=== PATIENT | female | born 1965 | race Caucasian/White ===

== ENCOUNTER 2017-12-28 20:02 | Inpatient (IN) ==
[2017-12-28] MEDS ORDERED: Sod Chloride 0.9% Inj 1,000 ML IV.SIG ONE (20:09)
[2017-12-28] MEDS ORDERED: Sod Chloride 0.9% Inj 1,000 ML IV.CONT SCH (20:15)
[2017-12-28 20:27] LABS: Baso # (Auto) 0.1 th/mm3 (0.0-0.2); Baso % (Auto) 0.9 % (0.0-2.0); Eos # (Auto) 0.2 th/mm3 (0.0-0.4); Eos % (Auto) 2.8 % (0.0-4.0); Hematocrit 46.1 % (35.0-46.0); Hemoglobin 15.8 gm/dL (11.6-15.3); Lymph % (Auto) 46.3 % (9.0-44.0); Mean Corpuscular HGB Conc 34.3 % (32.0-36.0); Mean Corpuscular Hemoglobin 33.4 pg (27.0-34.0); Mean Corpuscular Volume 97.5 fL (80.0-100.0); Mean Platelet Volume 7.9 fL (7.0-11.0); Mono # (Auto) 0.6 th/mm3 (0.0-0.9); Mono % (Auto) 9.7 % (0.0-8.0); Neut # (Auto) 2.6 th/mm3 (1.8-7.7); Neut % (Auto) 40.3 % (16.0-70.0); Platelet Count 221 th/mm3 (150-450); Red Blood Count 4.72 mil/mm3 (4.00-5.30); Red Cell Distribution Width 13.2 % (11.6-17.2); White Blood Count 6.5 th/mm3 (4.0-11.0)
--- NOTE | 2017-12-28 20:33 | CT ---
EXAM DATE: 12/28/2017 8:31 PM EDT AGE/SEX: 52 years / Female INDICATIONS: Slurred speech and left facial droop. CLINICAL DATA: This is the patient's initial encounter. Patient reports that signs and symptoms have been present for 1 day and indicates a pain score of 0/10. MEDICAL/SURGICAL HISTORY: Diabetes. Hypertension. Seizures None. RADIATION DOSE: 36.12 CTDI (mGy) [place] [facility] [place]. . TECHNIQUE: CT of the head without contrast. Using automated exposure control and adjustment of the mA and/or kV according to patient size, radiation dose was kept as low as reasonably achievable to ob tain optimal diagnostic quality images. DICOM format image data is available electronically for revi ew and comparison. FINDINGS: Cerebrum: The ventricles are normal for age. No evidence of midline shift, mass lesion, hemorrhage or acute infarction. No extraaxial fluid collections are seen. Posterior Fossa: The cerebellum and brainstem are intact. The 4th ventricle is midline. The cerebe llopontine angle is unremarkable. Extracranial: The visualized portion of the orbits is intact. Skull: The calvaria is intact. No evidence of skull fracture. CONCLUSION: 1. No acute intracranial abnormalities. . Electronically signed by: Cornel Florez MD 12/28/2017 8:32 PM EDT
--- NOTE | 2017-12-28 20:39 | ED ---
HPI General Chief Complaint: Neuro Symptoms/Deficit Stated Complaint: Neuro Time Seen by Provider: 12/28/17 20:13 Source: patient Mode of arrival: ambulatory Limitations: no limitations History of Present Illness HPI Narrative: Patient is a 52-year-old female presenting to the emergency department for evaluation of neurological deficits. Patient states she woke up this morning and had weakness to her right face, right arm, right leg. She reports feeling confused and has had trouble speaking. Patient was brought into emergency department by a friend. Onset of symptoms was over 10 hours prior to arrival to the emergency department. Patient reports a history of type 2 diabetes, she is currently taking a friend's metformin. She also reports a history of seizure disorder as well as alcoholism. Patient has not had any routine primary care in over 2 years. She denies any illicit drug use. Onset (ago): hour(s) (>8) Location: speech, left face, left arm and left leg History of same: No Severity: moderate Quality: weak Relieving factors: none Exacerbating factors: none Context: other (unknown onset, pt woke up with deficits this morning.) On Anticoagulants: No Associated symptoms: confusion and nausea/vomiting Treatments Prior to Arrival: none Related Data Allergies Allergy/AdvReac Type Severity Reaction Status Date / Time Sulfa (Sulfonamide Allergy Severe Anaphylaxis Verified 12/28/17 20:08 Antibiotics) sulfates Allergy Unknown Anaphylaxis Uncoded 12/28/17 20:08 Review of Systems Except as stated in HPI: all other systems reviewed are negative Neurologic Reports abnormal speech, Reports confusion, Reports focal weakness, Reports sensory deficit and Reports weakness PMFSH Medical History Medical History Alcoholism (Chronic) Diabetes (Chronic) Hypertension (Chronic) Seizures (Chronic) Social History Social History Substance History: No History of Abuse Second Hand Smoke Exposure: No Smoking Status: Never smoker How Often Do You Have a Drink Containing Alcohol: 4 or more times a week Recent Travel in [facility] within the Last 8 Weeks: No Recent Out of Country Travel within the Last 8 Weeks: No Immunization History Tetanus Immunization: >5 Years Hx Influenza Vaccine This Season: No Exam Narrative Exam Narrative: GENERAL: Well developed, well nourished, alert female. In no acute distress. SKIN: Focused skin assessment warm/dry. HEAD: Atraumatic. Normocephalic. EYES: Pupils equal and round. No scleral icterus. No injection or drainage. ENT: No nasal bleeding or discharge. Mucous membranes pink and moist. NECK: Trachea midline. No JVD. CARDIOVASCULAR: Regular rate and rhythm. No murmur appreciated. RESPIRATORY: No accessory muscle use. Clear to auscultation. Breath sounds equal bilaterally. GASTROINTESTINAL: Abdomen soft, non-tender, nondistended. Hepatic and splenic margins not palpable. MUSCULOSKELETAL: No obvious deformities. No clubbing. No cyanosis. No edema. PSYCHIATRIC: Appropriate mood and affect; insight and judgment normal. Neuro General: alert, awake and oriented x3 Cranial Nerves: PERRL Speech: abnormal speech Motor: strength not 5/5 throughout, movement abnormality noted, pronator drift and strength abnormal (left sided weakness, 0/5 in left hand, 2/5 in left foot) Coordination: acisuh-iv-[id number] test abnormal and rubr-rg-[id number] test normal Pupils: Normal pupillary reactivity/response: bilateral Course Initial Documented Vital Signs Temperature 98 F 12/28/17 20:05 Pulse Rate 97 H 12/28/17 20:05 Respiratory Rate 20 12/28/17 20:05 Blood Pressure 195/94 H 12/28/17 20:05 Pulse Oximetry 95 12/28/17 20:05 Last Documented Vital Signs Temperature 98 F 12/28/17 20:05 Pulse Rate 98 H 12/28/17 22:17 Respiratory Rate 18 12/28/17 22:17 Blood Pressure 144/92 H 12/28/17 22:17 Pulse Oximetry 97 12/28/17 22:17 Medical Decision Making [facility] Narrative Medical decision making narrative: Patient is a 52-year-old female presenting for evaluation of left-sided weakness that was present when she woke up this morning. Patient presented with significant focal deficits on the left side. Patient is placed on traffic monitor specialist, continuous pulse oximetry, IV access is established. Discussed with Dr. English, neurologist. She was informed, a consult was placed and no new orders were given. CT scan the brain shows no acute abnormalities. Blood alcohol level is 169, labs are reviewed with glucose 359, 10 units of subcutaneous insulin ordered 1 dose. Chest x-ray shows no acute disease. Patient will be admitted to [facility], discussed with Dr. Ms. all accepted admission. Patient and her friend were advised on clinical findings and plan of care. Patient is agreeable. Differential Diagnosis Differential Diagnosis: CVA versus TIA versus Marcos's palsy versus metabolic abnormality versus Seizure versus other Lab Data Lab results reviewed: Yes I reviewed the patient's lab results. Result diagrams: 12/28/17 20:12 12/28/17 20:12 Lab Results 12/28/17 12/28/17 12/28/17 Range/Units 20:12 20:12 20:12 WBC 6.5 (4.0-11.0) th/mm3 RBC 4.72 (4.00-5.30) mil/mm3 Hgb 15.8 H (11.6-15.3) gm/dL Hct 46.1 H (35.0-46.0) % MCV 97.5 (80.0-100.0) fL MCH 33.4 (27.0-34.0) pg MCHC 34.3 (32.0-36.0) % RDW 13.2 (11.6-17.2) % Plt Count 221 (150-450) th/mm3 MPV 7.9 (7.0-11.0) fL Neut % (Auto) 40.3 (16.0-70.0) % Lymph % (Auto) 46.3 H (9.0-44.0) % Perkins % (Auto) 9.7 H (0.0-8.0) % Eos % (Auto) 2.8 (0.0-4.0) % Baso % (Auto) 0.9 (0.0-2.0) % Neut # (Auto) 2.6 (1.8-7.7) th/mm3 Lymph # (Auto) 3.0 (1.0-4.8) th/mm3 Perkins # (Auto) 0.6 (0.0-0.9) th/mm3 Eos # (Auto) 0.2 (0.0-0.4) th/mm3 Baso # (Auto) 0.1 (0.0-0.2) th/mm3 WBC Differential . Differential Comment Auto diff final PT 10.7 (9.8-11.6) sec INR 1.1 Ratio APTT 27.5 (24.3-30.1) sec Sodium 134 L (136-145) meq/L Potassium 3.9 (3.5-5.1) meq/L Chloride 97 L (98-107) meq/L Carbon Dioxide 25.2 (21.0-32.0) meq/L Anion Gap 12 (5-15) meq/L BUN 8 (7-18) mg/dL Creatinine 0.89 (0.50-1.00) mg/dL Estimated GFR 66 L (>89) mL/min POC Glucose (68-110) mg/dl Random Glucose 359 H (74-106) mg/dL Calcium 9.3 (8.5-10.1) mg/dL Total Bilirubin 0.2 (0.2-1.0) mg/dL AST 62 H (15-37) U/L ALT 71 H (10-53) U/L Alkaline Phosphatase 150 H (45-117) U/L Total Creatine Kinase 231 H (26-192) U/L CK-MB (CK-2) 8.0 H (0.5-3.6) ng/mL CK-MB (CK-2) % 3.5 (0.0-4.0) % Troponin I Less than 0.02 L (0.02-0.05) ng/mL Total Protein 8.2 (6.4-8.2) g/dL Albumin 3.8 (3.4-5.0) g/dL Urine Color (Yellw/Straw) Urine Clarity (Clear) Urine pH (5.0-8.5) Ur Specific [place] (1.002-1.035) Urine Protein (Neg-Trace) mg/dL Urine Glucose (UA) (Negative) mg/dL Urine Ketones (Negative) mg/dL Urine Occult Blood (Negative) Urine Nitrate (Negative) Urine Bilirubin (Negative) Urine Urobilinogen (Less than 2) mg/dL Ur Leukocyte Esterase (Negative) Urine WBC (0-5) /hpf Ur Squamous Epith Cells (0-5) /hpf Urine Bacteria (None) /hpf Micro UA Comment Urine Culture Comments Serum Alcohol 169 H (0-5) mg/dL Blood Type Antibody Screen 12/28/17 12/28/17 12/28/17 Range/Units 20:12 20:45 23:37 WBC (4.0-11.0) th/mm3 RBC (4.00-5.30) mil/mm3 Hgb (11.6-15.3) gm/dL Hct (35.0-46.0) % MCV (80.0-100.0) fL MCH (27.0-34.0) pg MCHC (32.0-36.0) % RDW (11.6-17.2) % Plt Count (150-450) th/mm3 MPV (7.0-11.0) fL Neut % (Auto) (16.0-70.0) % Lymph % (Auto) (9.0-44.0) % Perkins % (Auto) (0.0-8.0) % Eos % (Auto) (0.0-4.0) % Baso % (Auto) (0.0-2.0) % Neut # (Auto) (1.8-7.7) th/mm3 Lymph # (Auto) (1.0-4.8) th/mm3 Perkins # (Auto) (0.0-0.9) th/mm3 Eos # (Auto) (0.0-0.4) th/mm3 Baso # (Auto) (0.0-0.2) th/mm3 WBC Differential Differential Comment PT (9.8-11.6) sec INR Ratio APTT (24.3-30.1) sec Sodium (136-145) meq/L Potassium (3.5-5.1) meq/L Chloride (98-107) meq/L Carbon Dioxide (21.0-32.0) meq/L Anion Gap (5-15) meq/L BUN (7-18) mg/dL Creatinine (0.50-1.00) mg/dL Estimated GFR (>89) mL/min POC Glucose 205 H (68-110) mg/dl Random Glucose (74-106) mg/dL Calcium (8.5-10.1) mg/dL Total Bilirubin (0.2-1.0) mg/dL AST (15-37) U/L ALT (10-53) U/L Alkaline Phosphatase (45-117) U/L Total Creatine Kinase (26-192) U/L CK-MB (CK-2) (0.5-3.6) ng/mL CK-MB (CK-2) % (0.0-4.0) % Troponin I (0.02-0.05) ng/mL Total Protein (6.4-8.2) g/dL Albumin (3.4-5.0) g/dL Urine Color Straw (Yellw/Straw) Urine Clarity Clear (Clear) Urine pH 5.0 (5.0-8.5) Ur Specific [place] 1.003 (1.002-1.035) Urine Protein Negative (Neg-Trace) mg/dL Urine Glucose (UA) 500 or greater (Negative) mg/dL Urine Ketones Negative (Negative) mg/dL Urine Occult Blood Negative (Negative) Urine Nitrate Negative (Negative) Urine Bilirubin Negative (Negative) Urine Urobilinogen Less than 2 (Less than 2) mg/dL Ur Leukocyte Esterase Negative (Negative) Urine WBC 1 (0-5) /hpf Ur Squamous Epith Cells 1 (0-5) /hpf Urine Bacteria Occasional H (None) /hpf Micro UA Comment Culture not ind Urine Culture Comments Culture not ind Serum Alcohol (0-5) mg/dL Blood Type B Positive Antibody Screen Negative Imaging Data Radiologist's impression: Head CT 12/28/17 20:06 CONCLUSION: 1. No acute intracranial abnormalities. . Chest X-Ray 12/28/17 20:07 CONCLUSION: No acute findings. Head MRI 12/28/17 22:03 CONCLUSION: 1. 11 mm small infarcts in the deep white matter of the posterior right frontal lobe. No mass effect or shift. No other infarcts identified. Head MRA 12/28/17 22:03 CONCLUSION: 1. Examination within normal limits for age. origin right posterior cerebral artery. Discharge Plan Discharge Disposition Patient Disposition: 30 Still Patient Discharge Condition Condition: Stable Discharge Details Diagnosis: CVA (cerebral vascular accident), HTN (hypertension), DM (diabetes mellitus), Alcohol abuse, Seizure disorder Physicians Team ED Provider: Stas Rose ED Midlevel Provider: Madison Hull Primary Care Provider: Primary Care Alexandra Dominguez Attending Provider: Lara Jimenez Status ED Status: Left Department Discharge Information Discharge Date/Time: 12/28/17 23:57
[2017-12-28 20:40] LABS: Activated Partial Thrombo Time 27.5 sec (24.3-30.1); INR 1.1 Ratio; Prothrombin Time 10.7 sec (9.8-11.6)
[2017-12-28 20:45] LABS: Alanine Aminotransferase 71 U/L (10-53); Albumin 3.8 g/dL (3.4-5.0); Anion Gap 12 meq/L (5-15); Aspartate Aminotransferase 62 U/L (15-37); Blood Urea Nitrogen 8 mg/dL (7-18); Calcium 9.3 mg/dL (8.5-10.1); Carbon Dioxide 25.2 meq/L (21.0-32.0); Chloride 97 meq/L (98-107); Glomerular Filtration Rate 66 mL/min (>89); Glucose,Random 359 mg/dL (74-106); Potassium 3.9 meq/L (3.5-5.1); Sodium 134 meq/L (136-145)
[2017-12-28 20:49] LABS: Alkaline Phosphatase 150 U/L (45-117); Creatine Kinase 231 U/L (26-192); Total Protein 8.2 g/dL (6.4-8.2)
[2017-12-28 20:53] LABS: Alcohol 169 mg/dL (0-5)
[2017-12-28] MEDS ORDERED: Thiamine Inj 100 MG in Sodium Chlor 0.9% Inj 100 ML IV.SIG ONE (20:58)
[2017-12-28 21:05] LABS: Bacteria,Urine Occasional /hpf; Bilirubin,Urine Negative (Negative); Clarity,Urine Clear (Clear); Color,Urine Straw (Yellw/Straw); Glucose,Urine (UA) 500 or Greater mg/dL (Negative); Leukocyte Esterase,Urine Negative (Negative); Nitrite,Urine Negative (Negative); Specific Gravity,Urine 1.003 (1.002-1.035); Squamous Epithelial Cell,Urine 1 /hpf (0-5)
[2017-12-28 21:06] LABS: CKMB Percent 3.5 % (0.0-4.0)
--- NOTE | 2017-12-28 21:08 | XR ---
EXAM DATE: 12/28/2017 9:01 PM EDT AGE/SEX: 52 years / Female INDICATIONS: Shortness of breath. CLINICAL DATA: This is the patient's initial encounter. Patient reports that signs and symptoms have been present for 1 day and indicates a pain score of 0/10. MEDICAL/SURGICAL HISTORY: None. None. [place] [facility] [place]. . FINDINGS: A single AP view of the chest demonstrates the lungs to be symmetrically aerated without evidence of mass, infiltrate or effusion. The cardiomediastinal contours are unremarkable. Osseous structures a re intact. CONCLUSION: No acute findings. Electronically signed by: Cornel Florez MD 12/28/2017 9:07 PM EDT
[2017-12-28] MEDS ORDERED: Dextrose 50% in Water 50 ML Vial IV.PUSH PRN (21:59)
[2017-12-28] MEDS ORDERED: Haloperidol Inj 5 MG/ML Ampul IV.PUSH PRN (22:00)
[2017-12-28] MEDS ORDERED: LORazepam 1 MG Tablet PO PRN (22:00)
--- NOTE | 2017-12-28 22:05 | P.HPIM ---
History of Present Illness Primary Care Physician: No Primary Care Physician History of Present Illness: This is a 52-year-old female with a PMH of HTN, DM, Peripheral Neuropathy, Seizure Disorder and Alcohol Abuse who presented to the ER with complaints of left hand weakness, facial droop and slurred speech. States she's been having intermittent headache, confusion and lethargy for the last few days. Woke up this morning w/ difficulty speaking and states she went to feed her cats and couldn't hold anything in her left hand. Unclear if she has lower extremity weakness, states she has "neuropathy" so it's difficult for her to tell. Reports h/o Seizure Disorder, off meds for several years, notes almost nightly seizure activity with "small seizures, not the big ones". No seizure today. Slurred speech and facial droop improved, however left hand weakness persists. +alcohol today. On arrival, BP 195/94, HR 97, O2 sat 95% on RA, Afebrile. CBC unremarkable. INR 1.1. Chemistry essentially unremarkable except for BS 359. LFTs elevated, no previous labs for comparison. Troponin negative. UA negative. Alcohol 169. CXR with no acute findings. CT Head negative. - Diagnosis (1) CVA (cerebral vascular accident) (2) HTN (hypertension) (3) Seizure disorder (4) Alcohol abuse (5) DM (diabetes mellitus) Review of Systems PAST FAMILY HISTORY: Reviewed. No h/o DM or CAD All other systems reviewed negative except as stated in HPI PMFSH - History History Provided By: Patient - Medical History Medical History: Medical History (Last Reviewed 12/28/17 @ 20:33 by ALAN Cole) Diabetes Hypertension Seizures Alcoholism - Tobacco History Second Hand Smoke Exposure: No Smoking Status: Never smoker - Alcohol History How Often Do You Have a Drink Containing Alcohol: 4 or more times a week - Substance Use History Substance History: No History of Abuse - Travel History Recent Travel in the [place] Within the Last 8 Weeks: No Recent Travel Out of the Country Within the Last 8 Weeks: No - Immunization History Tetanus Immunization: >5 Years Hx Influenza Vaccine This Season: No Medications and Allergies Active Medications: Active Medications Sodium Chloride (Ns Inj) 1,000 mls @ 70 mls/hr IV.CONT .[id number] ARGELIA Stop: 12/29/17 10:32 Sodium Chloride (Ns Flush) 2 ml IV.FLUSH PRN PRN PRN Reason: FLUSH AFTER USING IV ACCESS Allergies Allergy/AdvReac Type Severity Reaction Status Date / Time Sulfa (Sulfonamide Allergy Severe Anaphylaxis Verified 12/28/17 20:08 Antibiotics) sulfates Allergy Unknown Anaphylaxis Uncoded 12/28/17 20:08 Exam Vital signs: Vital Signs 12/28/17 20:05 12/28/17 20:30 Temperature 98 F Pulse Rate 97 H 100 H Respiratory Rate 20 Blood Pressure 195/94 H Pulse Oximetry 95 99 Intake & Output 12/28/17 12/28/17 12/29/17 06:59 18:59 06:59 Weight 72.575 kg Narrative: PE: GENERAL: Pleasant middle aged white female in no acute distress. HEENT: PERRLA, EOMI. No scleral icterus or conjunctival pallor. No lid lag or facial droop. Intermittent slurring, improved since arrival per pt. CARDIOVASCULAR: Regular rate and rhythm. No obvious murmurs to auscultation. No chest tenderness to palpation. RESPIRATORY: No obvious rhonchi or wheezing. Clear to auscultation. Breath sounds equal bilaterally. GASTROINTESTINAL: Abdomen soft, non-tender, nondistended. BS normal. MUSCULOSKELETAL: Extremities without clubbing, cyanosis, or edema. No obvious deformities. NEUROLOGICAL: Awake, alert and oriented x4. Strength 1/5 left hand, 2-3/5 left foot, normal strength RUE/RLE. Moving both upper and lower extremities spontaneously. Results - Labs CBC & Chem 7: 12/28/17 20:12 12/28/17 20:12 Labs: Short CBC 12/28/17 Range/Units 20:12 WBC 6.5 (4.0-11.0) th/mm3 Hgb 15.8 H (11.6-15.3) gm/dL Hct 46.1 H (35.0-46.0) % Plt Count 221 (150-450) th/mm3 BMP 12/28/17 20:12 Sodium 134 L Potassium 3.9 Chloride 97 L Carbon Dioxide 25.2 BUN 8 Creatinine 0.89 Calcium 9.3 Cardiac Enzymes 12/28/17 Range/Units 20:12 Total Creatine Kinase 231 H (26-192) U/L CK-MB (CK-2) 8.0 H (0.5-3.6) ng/mL Troponin I Less than 0.02 L (0.02-0.05) ng/mL Liver Function 12/28/17 Range/Units 20:12 Total Bilirubin 0.2 (0.2-1.0) mg/dL AST 62 H (15-37) U/L ALT 71 H (10-53) U/L Alkaline Phosphatase 150 H (45-117) U/L Albumin 3.8 (3.4-5.0) g/dL Urine 12/28/17 Range/Units 20:45 Urine Color Straw (Yellw/Straw) Urine Clarity Clear (Clear) Urine pH 5.0 (5.0-8.5) Ur Specific [place] 1.003 (1.002-1.035) Urine Protein Negative (Neg-Trace) mg/dL Urine Glucose (UA) 500 or greater (Negative) mg/dL - Imaging Impressions Head CT 12/28/17 20:06 CONCLUSION: 1. No acute intracranial abnormalities. . Chest X-Ray 12/28/17 20:07 CONCLUSION: No acute findings. Caprini VTE Risk Assessment Caprini VTE Risk Assessment: Moderate/High Risk (score >= 2) Caprini Risk Assessment Model: Point Value = 1 Point Value = 2 Point Value = 3 Point Value = 5 Age 41-60 Minor surgery BMI > 25 kg/m2 Swollen legs Varicose veins or History of unexplained or recurrent spontaneous Oral contraceptives or hormone replacement Sepsis (< 1 month) Serious lung disease, including pneumonia (< 1 month) Abnormal pulmonary function Acute myocardial infarction Congestive heart failure (< 1 month) History of inflammatory bowel disease Medical patient at bed rest Age 61-74 Arthroscopic surgery Major open surgery (> 45 min) Laparoscopic surgery (> 45 min) Malignancy Confined to bed (> 72 hours) Immobilizing plaster cast Central venous access Age >= 75 History of VTE Family history of VTE Factor V Leiden Prothrombin [id number] Lupus anticoagulant Anticardiolipin antibodies Elevated serum homocysteine Heparin-induced thrombocytopenia Other congenital or acquired thrombophilia Stroke (< 1 month) Elective arthroplasty Hip, pelvis, or leg fracture Acute spinal cord injury (< 1 month) Prophylaxis Regimen: Total Risk Factor Score Risk Level Prophylaxis Regimen 0-1 Low Early ambulation 2 Moderate Order ONE of the following: *Sequential Compression Device (SCD) *Heparin 5000 units SQ BID 3-4 Higher Order ONE of the following medications: *Heparin 5000 units SQ TID *Enoxaparin/Lovenox 40 mg SQ daily (WT < 150 kg, CrCl > 30 mL/min) *Enoxaparin/Lovenox 30 mg SQ daily (WT < 150 kg, CrCl > 10-29 mL/min) *Enoxaparin/Lovenox 30 mg SQ BID (WT < 150 kg, CrCl > 30 mL/min) AND/OR *Sequential Compression Device (SCD) 5 or more Highest Order ONE of the following medications: *Heparin 5000 units SQ TID (Preferred with Epidurals) *Enoxaparin/Lovenox 40 mg SQ daily (WT < 150 kg, CrCl > 30 mL/min) *Enoxaparin/Lovenox 30 mg SQ daily (WT < 150 kg, CrCl > 10-29 mL/min) *Enoxaparin/Lovenox 30 mg SQ BID (WT < 150 kg, CrCl > 30 mL/min) AND *Sequential Compression Device (SCD) Assessment and Plan - Assessment (1) CVA (cerebral vascular accident) Code(s): I63.9 - Cerebral infarction, unspecified Status: Acute (2) HTN (hypertension) Code(s): I10 - Essential (primary) hypertension Status: Acute (3) Seizure disorder Code(s): G40.909 - Epilepsy, unspecified, not intractable, without status epilepticus Status: Acute (4) Alcohol abuse Code(s): F10.10 - Alcohol abuse, uncomplicated Status: Acute (5) DM (diabetes mellitus) Code(s): E11.9 - Type 2 diabetes mellitus without complications Status: Acute - Plan A/P: 1. CVA: Acute onset facial droop, slurred speech and left-sided weakness, improved but persistent left hand weakness and mild slurred speech. Onset this morning, not TPA candidate. CT Head w/ no acute findings, images reviewed. Reports h/o Seizure Disorder not on anticonvulsants, can't recall if she had seizure activity ? Marcos's Paralysis. Check EEG. Check MRI/MRI. Check Lipid Profile/Hgb A1c. Neuro Cheks. Dr. English consulted, will evaluate in am. PT/OT /Speech. NPO, IVF. 2. Seizure Disorder: reports almost nightly "small seizures", off meds for several years. EEG as above, Neuro to eval for need to restart anticonvulsant meds. Neuro checks 3. HTN: Will allow for permissive HTN, hold home medications, antihypertensives prn for systolic >220 4. DM: Uncontrolled. BS 369, Sliding scale w/ Accu-Cheks. Check Hgb A1c. 5. Alcohol Abuse: Drinks daily, last drink today. Seizure Precautions, CIWA, MVT/Thiamine/Folate replacement. 6. DVT Prophylaxis: SCD/Teds 7. Social work for d/c planning as needed 8. Case discussed w/ ER physician at length, labs/records/imaging reviewed by me. (1) CVA (cerebral vascular accident) Qualifiers: CVA mechanism: unspecified Qualified Code(s): I63.9 - Cerebral infarction, unspecified (2) HTN (hypertension) Qualifiers: Hypertension type: unspecified Qualified Code(s): I10 - Essential (primary) hypertension (5) DM (diabetes mellitus) Qualifiers: Diabetes mellitus type: type 2 Diabetes mellitus middle or intermediate school principal insulin use: without middle or intermediate school principal use Diabetes mellitus complication status: with unspecified complications Qualified Code(s): E11.8 - Type 2 diabetes mellitus with unspecified complications
[2017-12-28] MEDS ORDERED: Thiamine Inj 100 MG in Sodium Chlor 0.9% Inj 100 ML IV.SIG SCH (22:30)
--- NOTE | 2017-12-28 23:02 | MR ---
EXAM DATE: 12/28/2017 10:54 PM EDT AGE/SEX: 52 years / Female INDICATIONS: CVA. Left sided weakness and slurred speech. CLINICAL DATA: This is the patient's initial encounter. Patient reports that signs and symptoms have been present for 1 day and indicates a pain score of 1/10. MEDICAL/SURGICAL HISTORY: Hypertension. Diabetes mellitus type II. Skin cancer. . Right arm s x. COMPARISON: No prior exams available for comparison. TECHNIQUE: Multiplanar, multisequence examination of the brain was performed without contrast. FINDINGS: There is a small approximately 11 mm infarct in the deep white matter of the right frontal lobe. No o ther infarct is identified. There is mild to moderate chronic ischemic changes in the periventricular white matter. No mass effec t or midline shift. No hydrocephalus. CONCLUSION: 1. 11 mm small infarcts in the deep white matter of the posterior right frontal lobe. No mass effect or shift. No other infarcts identified. Electronically signed by: Cornel Florez MD 12/28/2017 11:00 PM EDT
--- NOTE | 2017-12-28 23:03 | MR ---
EXAM DATE: 12/28/2017 10:54 PM EDT AGE/SEX: 52 years / Female INDICATIONS: CVA. Left sided weakness and slurred speech. CLINICAL DATA: This is the patient's initial encounter. Patient reports that signs and symptoms have been present for 1 day and indicates a pain score of 1/10. MEDICAL/SURGICAL HISTORY: Hypertension. Diabetes mellitus type II. Skin cancer. . Right arm s x. COMPARISON: No prior exams available for comparison. TECHNIQUE: 3D [id number] MRA was performed. Source images, multiplanar STS MIP, and 3D volum e MIP reconstructions were reviewed. FINDINGS: There is excellent visualization of the major intracranial arteries out to the second-order branch ve ssels. There is no evidence for aneurysm, vessel truncation or stenosis, and no evidence for vascula r malformation. CONCLUSION: 1. Examination within normal limits for age. origin right posterior cerebral artery. Electronically signed by: Cornel Florez MD 12/28/2017 11:02 PM EDT
[2017-12-29] MEDS: Sod Chloride 0.9% Inj 1,000 ML IV.CONT SCH ×2 (01:29→17:06)
[2017-12-29 07:48] LABS: Chol/HDL Ratio 3.02 Ratio; HDL Cholesterol 65.7 mg/dL (40.0-60.0)
[2017-12-29] MEDS: Insulin NovoLOG Aspart Correctional Sugar Inj SQ SCH ×4 (08:51→20:53)
[2017-12-29] MEDS: Folic Acid 1 MG Tablet PO SCH (09:03)
[2017-12-29] MEDS: Multivitamin/Minerals Therapeutic Tablet PO SCH (09:03)
--- NOTE | 2017-12-29 11:21 | MB ---
cc: Nancy English MD DATE: 12/29/2017 REASON FOR CONSULTATION: Stroke. HISTORY OF PRESENT ILLNESS: This is a 52-year-old woman with a history of hypertension, diabetes, neuropathy, seizures and alcohol abuse, who comes into the ER with left hand weakness, facial droop, and slurred speech. Today, she feels back to baseline. She does not feel her left arm weak any longer nor any droopiness. She states that she is going to stop drinking because she knows she has a drinking problem. 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 Denies any numbness, tingling, chest pain, shortness of breath, weakness, or facial droop. She has a history as stated. SOCIAL HISTORY: She works at [employer]. Does not smoke. Drinks daily. PAST MEDICAL HISTORY: As stated. ALLERGIES TO MEDICINE: SULFA AND SULFATES. MEDICATIONS: She does not take any. PHYSICAL EXAMINATION: VITAL SIGNS: Temperature 97.4, pulse 91, respiratory rate 16, blood pressure 169/82. NECK: Supple. No appreciable bruit. CARDIOVASCULAR: Regular. NEUROLOGIC: She is awake and alert. She is oriented and fluent. Pupils reactive. Visual bishop full. Face symmetrical. Tongue midline. Motor carmona, there may be a very, very mild downward drift. Cerebellar testing is normal, but slower on the left compared to the right. 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 Leg is intact. Reflexes are symmetrical. Gait is normal. LABORATORY DATA: Labs are reviewed. Her hemoglobin is 15.8, hematocrit 21, white count 6.5. Coag panel was normal. Chemistry: Sodium 134, glucose 359. Hemoglobin A1c is pending. Her AST 62, ALT 71, alkaline phosphatase 150. CK 231. Troponin less than 0.02. Cholesterol 199, LDL 118, HDL 65.7, triglyceride 78. Urine unremarkable tox screen. Alcohol level was 169. IMAGING STUDIES: MRA alat[place] of Tony normal for age. There is no intracranial disease per report. MRI shows 11 mm small infarct in the deep white matter in the posterior right frontal lobe. No mass effect, no other infarcts. IMPRESSION: 1. Right hemispheric infarct. 2. Hypertension. 3. Hyperlipidemia. 4. Alcohol abuse. RECOMMENDATIONS: Obtain a complete evaluation. Check a carotid ultrasound. Check a 2-D echo. Start her on a statin and start her on aspirin therapy. A1c is pending. Questionable diabetes. Blood pressure control. SCDs and subcutaneous heparin for DVT prevention. Watch her for any alcohol withdrawal. PT, OT evaluation. Depending on findings, further recommendations, but if the patient is stable and risk factors have been assessed and treatment recommended, certainly she can be discharged. I put her on some thiamine and folic acid as well. Continue current wound care as outlined. MD LISA Aleman/KIRK , 11:01 AM , 11:07 AM
--- NOTE | 2017-12-29 11:32 | P.PN ---
Subjective Interval history: Follow up on patient with CVA. Patient seen and examined. Patient states she feels fine. She reports complete resolution in her admitting sxs of left hand weakness, facial droop and slurred speech. She denies any new medical complaints. She denies any headache, vision changes, weakness or numbness/ tingling. She denies any chest pain or shortness of breath. She denies any N/ V or abdominal pain. She admits she drinks "too much". She states she was sober but started drinking again this May. She reports drinking 6-8 beers daily. Physical Exam Vital signs: Vital Signs 12/28/17 20:05 12/28/17 20:30 12/28/17 22:17 Temperature 98 F Pulse Rate 97 H 100 H 98 H Respiratory Rate 20 18 Blood Pressure 195/94 H 144/92 H Pulse Oximetry 95 99 97 12/29/17 00:00 12/29/17 04:00 12/29/17 08:00 Temperature 97.7 F 97.7 F 97.4 F L Pulse Rate 101 H 91 H 91 H Respiratory Rate 18 17 16 Blood Pressure 135/80 152/72 H 169/82 H Pulse Oximetry 94 L 96 99 12/29/17 09:00 Temperature Pulse Rate 91 H Respiratory Rate Blood Pressure Pulse Oximetry Intake & Output 12/28/17 12/29/17 12/29/17 18:59 06:59 18:59 Intake Total 1101 / 1101 0 / 0 Balance 1101 / 1101 0 / 0 Weight 73.9 kg Intake: IV 1101 / 1101 NS Inj 1,000 ML @ Wide Open IV. 1000 / 1000 SIG BOLUS ONE Rx#:[id number] Thiamine Inj 100 MG In NS Inj 101 / 101 100 ML @ 100 mls/hr IV.SIG ONCE ONE Rx#:[id number] Oral 0 / 0 0 / 0 Other: # Voids 1 Narrative: GENERAL: WDWN female who appears older than her stated age, INAD. Awake and alert. SKIN: Warm and dry. No generalized rash. HEAD: Atraumatic. Normocephalic. No facial asymmetry. EYES: EOMI. No scleral icterus. No injection or drainage. ENT: No nasal bleeding or discharge. Mucous membranes pink and moist. NECK: Trachea midline. No JVD. CARDIOVASCULAR: Regular rate and rhythm. No murmurs auscultated. RESPIRATORY: No accessory muscle use. Clear to auscultation. Breath sounds equal bilaterally. GASTROINTESTINAL: Abdomen soft, non-tender, nondistended. +BS. MUSCULOSKELETAL: Extremities without clubbing, cyanosis, or edema. No obvious deformities. NEUROLOGICAL: Awake and alert. No obvious cranial nerve deficits. Slight decrease in left hand electrical assistant strength otherwise motor function intact. Normal speech. PSYCHIATRIC: Pleasant and calm. Appropriate mood and affect; insight and judgment normal. Results - Labs CBC & Chem 7: 12/28/17 20:12 12/28/17 20:12 Laboratory Results - last 24 hr 12/28/17 12/28/17 12/28/17 20:12 20:12 20:12 WBC 6.5 RBC 4.72 Hgb 15.8 H Hct 46.1 H MCV 97.5 MCH 33.4 MCHC 34.3 RDW 13.2 Plt Count 221 MPV 7.9 Neut % (Auto) 40.3 Lymph % (Auto) 46.3 H Hickman % (Auto) 9.7 H Eos % (Auto) 2.8 Baso % (Auto) 0.9 Neut # (Auto) 2.6 Lymph # (Auto) 3.0 Hickman # (Auto) 0.6 Eos # (Auto) 0.2 Baso # (Auto) 0.1 WBC Differential . Differential Comment Auto diff final PT 10.7 INR 1.1 APTT 27.5 Sodium 134 L Potassium 3.9 Chloride 97 L Carbon Dioxide 25.2 Anion Gap 12 BUN 8 Creatinine 0.89 Estimated GFR 66 L POC Glucose Random Glucose 359 H Calcium 9.3 Total Bilirubin 0.2 AST 62 H ALT 71 H Alkaline Phosphatase 150 H Total Creatine Kinase 231 H CK-MB (CK-2) 8.0 H CK-MB (CK-2) % 3.5 Troponin I Less than 0.02 L Total Protein 8.2 Albumin 3.8 Triglycerides Cholesterol LDL Cholesterol, Calc HDL Cholesterol Cholesterol/HDL Ratio Urine Color Urine Clarity Urine pH Ur Specific [place] Urine Protein Urine Glucose (UA) Urine Ketones Urine Occult Blood Urine Nitrate Urine Bilirubin Urine Urobilinogen Ur Leukocyte Esterase Urine WBC Ur Squamous Epith Cells Urine Bacteria Micro UA Comment Urine Culture Comments Serum Alcohol 169 H Blood Type Antibody Screen 12/28/17 12/28/17 12/28/17 20:12 20:45 23:37 WBC RBC Hgb Hct MCV MCH MCHC RDW Plt Count MPV Neut % (Auto) Lymph % (Auto) Hickman % (Auto) Eos % (Auto) Baso % (Auto) Neut # (Auto) Lymph # (Auto) Hickman # (Auto) Eos # (Auto) Baso # (Auto) WBC Differential Differential Comment PT INR APTT Sodium Potassium Chloride Carbon Dioxide Anion Gap BUN Creatinine Estimated GFR POC Glucose 205 H Random Glucose Calcium Total Bilirubin AST ALT Alkaline Phosphatase Total Creatine Kinase CK-MB (CK-2) CK-MB (CK-2) % Troponin I Total Protein Albumin Triglycerides Cholesterol LDL Cholesterol, Calc HDL Cholesterol Cholesterol/HDL Ratio Urine Color Straw Urine Clarity Clear Urine pH 5.0 Ur Specific [place] 1.003 Urine Protein Negative Urine Glucose (UA) 500 or greater Urine Ketones Negative Urine Occult Blood Negative Urine Nitrate Negative Urine Bilirubin Negative Urine Urobilinogen Less than 2 Ur Leukocyte Esterase Negative Urine WBC 1 Ur Squamous Epith Cells 1 Urine Bacteria Occasional H Micro UA Comment Culture not ind Urine Culture Comments Culture not ind Serum Alcohol Blood Type B Positive Antibody Screen Negative 12/29/17 06:32 WBC RBC Hgb Hct MCV MCH MCHC RDW Plt Count MPV Neut % (Auto) Lymph % (Auto) [place]ick[place] % (Auto) Eos % (Auto) Baso % (Auto) Neut # (Auto) Lymph # (Auto) Hickman # (Auto) Eos # (Auto) Baso # (Auto) WBC Differential Differential Comment PT INR APTT Sodium Potassium Chloride Carbon Dioxide Anion Gap BUN Creatinine Estimated GFR POC Glucose Random Glucose Calcium Total Bilirubin AST ALT Alkaline Phosphatase Total Creatine Kinase CK-MB (CK-2) CK-MB (CK-2) % Troponin I Total Protein Albumin Triglycerides 78 Cholesterol 199 LDL Cholesterol, Calc 118 H HDL Cholesterol 65.7 H Cholesterol/HDL Ratio 3.02 Urine Color Urine Clarity Urine pH Ur Specific [place] Urine Protein Urine Glucose (UA) Urine Ketones Urine Occult Blood Urine Nitrate Urine Bilirubin Urine Urobilinogen Ur Leukocyte Esterase Urine WBC Ur Squamous Epith Cells Urine Bacteria Micro UA Comment Urine Culture Comments Serum Alcohol Blood Type Antibody Screen - Imaging Impressions Head CT 12/28/17 20:06 CONCLUSION: 1. No acute intracranial abnormalities. . Chest X-Ray 12/28/17 20:07 CONCLUSION: No acute findings. Head MRI 12/28/17 22:03 CONCLUSION: 1. 11 mm small infarcts in the deep white matter of the posterior right frontal lobe. No mass effect or shift. No other infarcts identified. Head MRA 12/28/17 22:03 CONCLUSION: 1. Examination within normal limits for age. origin right posterior cerebral artery. - Procedures None Assessment and Plan - Assessment (1) CVA (cerebral vascular accident) Code(s): I63.9 - Cerebral infarction, unspecified Status: Acute (2) HTN (hypertension) Code(s): I10 - Essential (primary) hypertension Status: Acute (3) Seizure disorder Code(s): G40.909 - Epilepsy, unspecified, not intractable, without status epilepticus Status: Acute (4) Alcohol abuse Code(s): F10.10 - Alcohol abuse, uncomplicated Status: Acute (5) DM (diabetes mellitus) Code(s): E11.9 - Type 2 diabetes mellitus without complications Status: Acute - Plan CVA Acute onset facial droop, slurred speech and left-sided weakness, improved but persistent left hand weakness MRI shows 11mm small infarct in the deep white matter in the posterior right frontal lobe Neurology following, appreciate recommendations. -Obtain 2D echo and carotid doppler US -neuro checks -continuous cardiac monitoring -continue on ASA 81mg daily. LDL 118. Unable to initiate statin therapy at this time 2/2 elevated LFTs. -PT/OT eval - no needs identified -fall and seizure precautions Seizure Disorder reports almost nightly "small seizures", off meds for several years. -EEG ordered -Neuro to eval for need to restart anticonvulsant meds. -seizure precautions HTN -Will allow for permissive HTN, hold home medications, antihypertensives prn for systolic >220 DM, uncontrolled HgbA1c 10.9 -start Levemir 5u qhs -continue with Sliding scale w/ Accu-Cheks Alcohol Abuse patients alcohol level was 169 in ED Drinks daily 6-8 beers per pt report, last drink on day of admit -Seizure Precautions -CIWA protocol -MVI/Thiamine/Folate replacement -discussed with patient importance of alcohol cessation Transaminitis, suspect secondary to EtOH abuse -avoid hepatotoxic agents -trend LFTs DVT Prophylaxis -SCD/LUTHER hose Code Status: FULL Discussed Condition With: patient, Dr. Jimenez Discharge Planning: Not ready for discharge. Stroke workup in progress. Possible d/c tomorrow pending Neurology clearance and improvement in blood sugars. (1) CVA (cerebral vascular accident) Qualifiers: CVA mechanism: unspecified Qualified Code(s): I63.9 - Cerebral infarction, unspecified (2) HTN (hypertension) Qualifiers: Hypertension type: unspecified Qualified Code(s): I10 - Essential (primary) hypertension (5) DM (diabetes mellitus) Qualifiers: Diabetes mellitus type: type 2 Diabetes mellitus group home insulin use: without group home use Diabetes mellitus complication status: with unspecified complications Qualified Code(s): E11.8 - Type 2 diabetes mellitus with unspecified complications
[2017-12-29 13:27] LABS: Hemoglobin A1c 10.9 % (4.3-6.0)
--- NOTE | 2017-12-29 14:01 | ECG ---
Date Performed: 12/28/2017 Time Performed: 20:09:47 PTAGE: 52 years EKG: SINUS TACHYCARDIA ABNORMAL RHYTHM ECG Since the PREVIOUS TRACING , no significant change noted PREVIOUS TRACIN09/16/2015 09.39 DOCTOR: Demi Sevilla Interpretating Date/Time 12/29/2017 14:00:02
--- NOTE | 2017-12-29 17:45 | MG ---
cc: Nancy English MD EEG NUMBER: [id number] REFERRING PHYSICIAN: ____ CLINICAL HISTORY: In room 1606 with photic done, awake. A 52-year-old woman admitted with left-sided weakness. She does have a right-sided stroke history, alcohol use, diabetes, hypertension and seizure history in the past. DESCRIPTION OF RECORD: A little bit of eye movement artifact that the patient exhibits, overall background of 11 Hz, 20-30 microvolts. Overall, fairly symmetrical background. EKG looks sinus. Some myogenic artifact, but no epileptiform features. Photic stimulation does elicit a posterior driving response. IMPRESSION: Overall, normal appearing electroencephalogram. No appreciable epileptic activity. Clinical correlation. MD LISA Aleman/KIRK , 05:29 PM , 05:33 PM
--- NOTE | 2017-12-29 19:45 | US ---
EXAM DATE: 12/29/2017 6:48 PM EDT AGE/SEX: 52 years / Female INDICATIONS: Cerebral vascular accident. CLINICAL DATA: This is the patient's initial encounter. Patient reports that signs and symptoms have been present for 1 day and indicates a pain score of 0/10. MEDICAL/SURGICAL HISTORY: Diabetes. Hypertension. Seizures. Alcoholism. None. COMPARISON: No prior exams available for comparison. VELOCITY PARAMETERS: ICA/CCA Ratio: Right 1.3 , Left 0.9 ICA: Right 102 cm/sec, Left 74 cm/sec CCA: Right 77 cm/sec, Left 78 cm/sec ECA: Right 74 cm/sec, Left 77 cm/sec Vertebral: Right 74 cm/sec antegrade, Left 38 cm/sec antegrade FINDINGS: Right Carotid: No significant plaque is visualized.The waveforms are within normal limits. Left Carotid: Mild arteriosclerotic plaque is visualized. The waveforms are within normal limits. Other: None. CONCLUSION: 1. Right Internal Carotid Artery: No evidence of hemodynamically significant carotid stenosis. 2. Left Internal Carotid Artery: No evidence of hemodynamically significant carotid stenosis. Electronically signed by: Fab Keane MD 12/29/2017 7:44 PM EDT
[2017-12-29] MEDS ORDERED: Insulin Detemir Inj 1,000 UNIT/10 ML Vial SQ SCH (21:00)
[2017-12-29] MEDS ORDERED: Thiamine Inj 100 MG in Sodium Chlor 0.9% Inj 100 ML IV.SIG SCH (23:00)
[2017-12-30 08:52] LABS: Alanine Aminotransferase 60 U/L (10-53); Albumin 3.8 g/dL (3.4-5.0); Alkaline Phosphatase 103 U/L (45-117); Anion Gap 6 meq/L (5-15); Aspartate Aminotransferase 40 U/L (15-37); Blood Urea Nitrogen 11 mg/dL (7-18); Calcium 9.4 mg/dL (8.5-10.1); Carbon Dioxide 31.9 meq/L (21.0-32.0); Chloride 100 meq/L (98-107); Glomerular Filtration Rate 70 mL/min (>89); Glucose,Random 244 mg/dL (74-106); Potassium 3.9 meq/L (3.5-5.1); Sodium 138 meq/L (136-145); Total Protein 7.6 g/dL (6.4-8.2)
[2017-12-30] MEDS: Insulin NovoLOG Aspart Correctional Sugar Inj SQ SCH ×2 (08:59→12:42)
[2017-12-30] MEDS ORDERED: Lisinopril 5 MG Tablet PO SCH (09:00)
[2017-12-30] MEDS ORDERED: Insulin Detemir Inj 1,000 UNIT/10 ML Vial SQ SCH (09:00)
[2017-12-30] MEDS: Folic Acid 1 MG Tablet PO SCH (09:01)
[2017-12-30] MEDS: Multivitamin/Minerals Therapeutic Tablet PO SCH (09:01)
--- NOTE | 2017-12-30 11:19 | ECHRPT ---
Indication: CVA/TIA CONCLUSIONS Normal left ventricular size. Wall thickness is normal. Normal left ventricular systolic function with and ejection fraction of 60-65%. No atrial level shunt is demonstrated by color flow Doppler interrogation. There is trace tricuspid valve regurgitation. The estimated pulmonary arterial pressure is 29.9 mmHg. BP: / HR: Rhythm: Sinus MEASUREMENTS (Male / Female) Normal Values Technical Quality:Fair 2D ECHO LV Diastolic Diameter PLAX 5.0 cm 4.2 - 5.9 / 3.9 - 5.3 cm LV Systolic Diameter PLAX 3.5 cm IVS Diastolic Thickness 0.7 cm 0.6 - 1.0 / 0.6 - 0.9 cm LVPW Diastolic Thickness 0.7 cm 0.6 - 1.0 / 0.6 - 0.9 cm LV Relative Wall Thickness 0.3 RV Internal Dim ED PLAX 3.6 cm LVOT Diameter 1.7 cm Aortic Root Diameter 2.6 cm LA Systolic Diameter LX 3.5 cm 3.0 - 4.0 / 2.7 - 3.8 cm M-MODE AV Cusp Separation MM 2.1 cm DOPPLER AV Peak Velocity 124.0 cm/s AV Peak Gradient 6.2 mmHg AV Mean Gradient 4.0 mmHg AV Velocity Time Integral 22.2 cm LVOT Peak Velocity 101.0 cm/s LVOT Peak Gradient 4.1 mmHg LVOT Velocity Time Integral 16.9 cm AV Area Cont Eq vti 1.7 cm AV Area Cont Eq pk 1.8 cm Mitral E Point Velocity 80.9 cm/s Mitral A Point Velocity 91.3 cm/s Mitral E to A Ratio 0.9 LV E' Lateral Velocity 10.7 cm/s Mitral E to LV E' Lateral Ratio 7.6 LV E' Septal Velocity 5.3 cm/s Mitral E to LV E' Septal Ratio 15.4 TR Peak Velocity 223.0 cm/s TR Peak Gradient 19.9 mmHg Right Atrial Pressure 10.0 mmHg Pulmonary Artery Systolic Pressu 29.9 mmHg Right Ventricular Systolic Press 29.9 mmHg PV Peak Velocity 63.2 cm/s PV Peak Gradient 1.6 mmHg FINDINGS LEFT VENTRICLE Normal left ventricular size. Wall thickness is normal. The left ventricular systolic function is normal with an estimated ejection fraction in the range of 60-65%. RIGHT VENTRICLE Normal right ventricular size and systolic function. LEFT ATRIUM The left atrial size is normal. RIGHT ATRIUM The right atrial size is normal. ATRIAL SEPTUM No atrial level shunt is demonstrated by color flow Doppler interrogation. AORTA The aortic root and proximal ascending aorta are normal in size on limited imaging. MITRAL VALVE Structurally normal mitral valve. No mitral valve stenosis or regurgitation. AORTIC VALVE Trileaflet aortic valve. No aortic valve stenosis or regurgitation. TRICUSPID VALVE There is trace tricuspid valve regurgitation. The estimated pulmonary arterial pressure is 29.9 mmHg. PULMONARY VALVE The pulmonary valve is not well visualized. VESSELS The inferior vena cava was not well visualized. PERICARDIUM No pericardial effusion. Braxton Dhaliwal MD, FACC, [facility] [place] (Electronically Signed) Final Date:30 December 2017 11:18
--- NOTE | 2017-12-30 11:24 | P.DS ---
Date of admission: 12/28/17 22:08 Primary care physician: No Primary Care Physician Attending physician on discharge: Lara Jimenez Anticipated date of discharge: 12/30/17 Brief History from admission: This is a 52-year-old female with a PMH of HTN, DM, Peripheral Neuropathy, Seizure Disorder and Alcohol Abuse who presented to the ER with complaints of left hand weakness, facial droop and slurred speech. States she's been having intermittent headache, confusion and lethargy for the last few days. Woke up this morning w/ difficulty speaking and states she went to feed her cats and couldn't hold anything in her left hand. Unclear if she has lower extremity weakness, states she has "neuropathy" so it's difficult for her to tell. Reports h/o Seizure Disorder, off meds for several years, notes almost nightly seizure activity with "small seizures, not the big ones". No seizure today. Slurred speech and facial droop improved, however left hand weakness persists. +alcohol today. On arrival, BP 195/94, HR 97, O2 sat 95% on RA, Afebrile. CBC unremarkable. INR 1.1. Chemistry essentially unremarkable except for BS 359. LFTs elevated, no previous labs for comparison. Troponin negative. UA negative. Alcohol 169. CXR with no acute findings. CT Head negative. DS: Diagnosis - Discharge Diagnosis (1) CVA (cerebral vascular accident) Status: Acute (2) HTN (hypertension) Status: Acute (3) Seizure disorder Status: Acute (4) Alcohol abuse Status: Acute (5) DM (diabetes mellitus) Status: Acute DS: Summary Hospital Course: Patient with acute onset of facial droop, slurred speech and left-sided weakness that had nearly resolved by the time patient was admitted. Given that patient's onset was in the morning, she was not a TPA candidate. CT the head did not show any acute abnormalities. Patient admitted to excessive alcohol use 6-8 beers daily. Her alcohol level is 169 in the ED. She was noted to have mild transaminitis with improvement in LFTs during her hospital course. Patient was seen in consultation by neurology. She was started on aspirin therapy. She underwent MRI which revealed 11 mm small infarct in the deep white matter in the posterior right frontal lobe. Carotid ultrasound showed no evidence of hemodynamically significant stenosis. Patient reported a history of seizures secondary to drug use in the past. EEG showed no seizure activity. Patient to participated with PT/OT/ST and no needs were identified. Patient was started on lisinopril for high blood pressure after allowing for permissive hypertension. Patient is known to have uncontrolled diabetes with blood sugars in the 300s and a hemoglobin A1c of 10.9. She was started on Levemir. Patient was counseled multiple times regarding complete alcohol and drug abstinence( patient stated she had not used drugs in years). Patient was cleared for discharge from neurology service. Case management assisted with discharge planning. - Time Spent with Patient Total time spent providing and/or coordinating discharge services: Greater than 30 minutes Exam Vital signs: Vital Signs 12/29/17 12:00 12/29/17 12:38 12/29/17 16:00 Temperature 97.5 F L 97.7 F Pulse Rate 80 90 Respiratory Rate 16 16 Blood Pressure 169/83 H 177/100 H Pulse Oximetry 96 96 100 12/29/17 17:55 12/29/17 20:00 12/29/17 21:31 Temperature 98.1 F Pulse Rate 90 Respiratory Rate 18 Blood Pressure 175/101 H 180/91 H Pulse Oximetry 99 99 12/30/17 00:00 12/30/17 04:00 12/30/17 06:04 Temperature 97.7 F 98.2 F Pulse Rate 81 82 76 Respiratory Rate 18 18 Blood Pressure 137/92 H 146/67 H Pulse Oximetry 97 98 12/30/17 08:00 Temperature Pulse Rate 80 Respiratory Rate Blood Pressure Pulse Oximetry Intake & Output 12/29/17 12/30/17 12/30/17 18:59 06:59 18:59 Intake Total 0 / 0 Balance 0 / 0 Weight 75 kg Intake: Oral 0 / 0 Other: Date of Last Bowel Movement 12/29/17 Narrative: GENERAL: WDWN female who appears older than her stated age, INAD. Awake and alert. Witnessed ambulating in the unit without any difficulties. SKIN: Warm and dry. No generalized rash. HEAD: Atraumatic. Normocephalic. No facial asymmetry. EYES: EOMI. No scleral icterus. No injection or drainage. ENT: No nasal bleeding or discharge. Mucous membranes pink and moist. NECK: Trachea midline. No JVD. CARDIOVASCULAR: Regular rate and rhythm. No murmurs auscultated. RESPIRATORY: No accessory muscle use. Clear to auscultation. Breath sounds equal bilaterally. GASTROINTESTINAL: Abdomen soft, non-tender, nondistended. +BS. MUSCULOSKELETAL: Extremities without clubbing, cyanosis, or edema. No obvious deformities. NEUROLOGICAL: Awake and alert. No obvious cranial nerve deficits. 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 Normal speech. PSYCHIATRIC: Pleasant and calm. Appropriate mood and affect; insight and judgment normal. Results Procedures completed during hospitalization: None Labs on day of discharge: Labs from last 24 hours 12/30/17 12/30/17 12/29/17 07:48 07:32 20:49 Sodium 138 Potassium 3.9 Chloride 100 Carbon Dioxide 31.9 Anion Gap 6 BUN 11 Creatinine 0.85 Estimated GFR 70 L POC Glucose 302 H 324 H Random Glucose 244 H D Hemoglobin A1c Calcium 9.4 Total Bilirubin 0.5 AST 40 H ALT 60 H Alkaline Phosphatase 103 Total Protein 7.6 D Albumin 3.8 12/29/17 12/29/17 12/29/17 16:57 14:34 06:32 Sodium Potassium Chloride Carbon Dioxide Anion Gap BUN Creatinine Estimated GFR POC Glucose 286 H 406 H Random Glucose Hemoglobin A1c 10.9 H Calcium Total Bilirubin AST ALT Alkaline Phosphatase Total Protein Albumin - Impressions ITS Impressions Head CT 12/28/17 20:06 CONCLUSION: 1. No acute intracranial abnormalities. . Chest X-Ray 12/28/17 20:07 CONCLUSION: No acute findings. Head MRI 12/28/17 22:03 CONCLUSION: 1. 11 mm small infarcts in the deep white matter of the posterior right frontal lobe. No mass effect or shift. No other infarcts identified. Head MRA 12/28/17 22:03 CONCLUSION: 1. Examination within normal limits for age. origin right posterior cerebral artery. Carotid Doppler Study 12/29/17 00:00 CONCLUSION: 1. Right Internal Carotid Artery: No evidence of hemodynamically significant carotid stenosis. 2. Left Internal Carotid Artery: No evidence of hemodynamically significant carotid stenosis. Discharge Plan - Discharge Disposition Patient Disposition: 01 Discharge Home - Discharge Condition Condition: Stable - Discharge Order Discharge Orders: Discharge Order (Routine); Ordered 12/30/17 Ordered By: Yojana Hernandez - Discharge Details Anticipated Discharge Date: 12/30/17 - Physicians Team Primary Care Provider: Primary Care Alberto,No Attending Provider: Lara Jimenez
--- NOTE | 2017-12-30 14:47 | P.PN ---
Subjective Interval history: Follow up on patient with CVA, uncontrolled DM. Patient seen and examined. Patients BS 501. Per Chris AMARO, patient has hard candies she has been eating in her room. She denies any acute medical complaints. She states she feels really good. She denies any recurrence of her admitting sxs. She denies any headache, slurred speech, weakness or numbness/tingling. She has been taking a friends Metformin as she ran out of her own. Physical Exam Vital signs: Vital Signs 12/29/17 16:00 12/29/17 17:55 12/29/17 20:00 Temperature 97.7 F 98.1 F Pulse Rate 90 90 Respiratory Rate 16 18 Blood Pressure 177/100 H 175/101 H Pulse Oximetry 100 99 99 12/29/17 21:31 12/30/17 00:00 12/30/17 04:00 Temperature 97.7 F 98.2 F Pulse Rate 81 82 Respiratory Rate 18 18 Blood Pressure 180/91 H 137/92 H 146/67 H Pulse Oximetry 97 98 12/30/17 06:04 12/30/17 08:00 12/30/17 12:00 Temperature 97.6 F Pulse Rate 76 80 81 Respiratory Rate 16 Blood Pressure 156/80 H Pulse Oximetry 98 Intake & Output 12/29/17 12/30/17 12/30/17 18:59 06:59 18:59 Intake Total 0 / 0 Balance 0 / 0 Weight 75 kg Intake: Oral 0 / 0 Other: Date of Last Bowel Movement 12/29/17 Narrative: GENERAL: WDWN female who appears older than her stated age, INAD. Awake and alert. Ambulating in the unit without any noticeable difficulty. SKIN: Warm and dry. No generalized rash. HEENT: Atraumatic. Normocephalic. No facial asymmetry. EOMI. No scleral icterus. No injection or drainage. No nasal bleeding or discharge. Mucous membranes pink and moist. NECK: Trachea midline. No JVD. CARDIOVASCULAR: Regular rate and rhythm. No murmurs auscultated. RESPIRATORY: No accessory muscle use. Clear to auscultation. Breath sounds equal bilaterally. GASTROINTESTINAL: Abdomen soft, non-tender, nondistended. +BS. MUSCULOSKELETAL: Extremities without clubbing, cyanosis, or edema. No obvious deformities. NEUROLOGICAL: Awake and alert. No obvious cranial nerve deficits. Motor function intact bilateral upper and lower extremities. Normal speech. PSYCHIATRIC: Pleasant and calm. Appropriate mood and affect; insight and judgment fair. Results - Labs CBC & Chem 7: 12/28/17 20:12 12/30/17 07:32 Laboratory Results - last 24 hr 12/29/17 12/29/17 12/29/17 14:34 16:57 20:49 Sodium Potassium Chloride Carbon Dioxide Anion Gap BUN Creatinine Estimated GFR POC Glucose 406 H 286 H 324 H Random Glucose Calcium Total Bilirubin AST ALT Alkaline Phosphatase Total Protein Albumin 12/30/17 12/30/17 12/30/17 07:32 07:48 12:02 Sodium 138 Potassium 3.9 Chloride 100 Carbon Dioxide 31.9 Anion Gap 6 BUN 11 Creatinine 0.85 Estimated GFR 70 L POC Glucose 302 H 455 H* Random Glucose 244 H D Calcium 9.4 Total Bilirubin 0.5 AST 40 H ALT 60 H Alkaline Phosphatase 103 Total Protein 7.6 D Albumin 3.8 12/30/17 13:57 Sodium Potassium Chloride Carbon Dioxide Anion Gap BUN Creatinine Estimated GFR POC Glucose 501 H* Random Glucose Calcium Total Bilirubin AST ALT Alkaline Phosphatase Total Protein Albumin - Imaging Impressions Carotid Doppler Study 12/29/17 00:00 CONCLUSION: 1. Right Internal Carotid Artery: No evidence of hemodynamically significant carotid stenosis. 2. Left Internal Carotid Artery: No evidence of hemodynamically significant carotid stenosis. - Procedures None Assessment and Plan - Assessment (1) CVA (cerebral vascular accident) Code(s): I63.9 - Cerebral infarction, unspecified Status: Acute (2) HTN (hypertension) Code(s): I10 - Essential (primary) hypertension Status: Acute (3) Seizure disorder Code(s): G40.909 - Epilepsy, unspecified, not intractable, without status epilepticus Status: Acute (4) Alcohol abuse Code(s): F10.10 - Alcohol abuse, uncomplicated Status: Acute (5) DM (diabetes mellitus) Code(s): E11.9 - Type 2 diabetes mellitus without complications Status: Acute - Plan CVA Acute onset facial droop, slurred speech and left-sided weakness, improved but persistent left hand weakness MRI shows 11mm small infarct in the deep white matter in the posterior right frontal lobe Carotid US neg 2D echo shows EF 60-65% -Neurology following, appreciate assistance -neuro checks -continuous cardiac monitoring -continue on ASA 81mg daily. LDL 118. Begin low dose statin therapy. -PT/OT eval - no needs identified -fall and seizure precautions Seizure Disorder reports almost nightly "small seizures", off meds for several years. -EEG without any epileptic activity -Neuro to eval for need to restart anticonvulsant meds. -seizure precautions HTN allowed for permissive HTN -begin Lisinopril 5mg daily -continue to monitor BP and adjust treatment accordingly DM, uncontrolled HgbA1c 10.9 BS 501 -give 10u regular insulin now -increase Levemir to 5u BID -begin Metformin 500mg BID -continue with Sliding scale w/ Accu-Cheks -nurse to take Alcohol Abuse patients alcohol level was 169 in ED Drinks daily 6-8 beers per pt report, last drink on day of admit -Seizure Precautions -CIWY protocol -MVI/Thiamine/Folate replacement -discussed with patient importance of alcohol cessation Transaminitis, suspect secondary to EtOH abuse -avoid hepatotoxic agents -LFTs trending down - will start low dose statin therapy now. Patient will need to have LFTs rechecked with PCP as outpatient. DVT Prophylaxis -SCD/LUTHER hose Code Status: Full Discussed Condition With: patient, nursing staff, Dr. Jimenez Discharge Planning: Not ready for discharge. Discharge pending Neurology clearance and blood glucose control. (1) CVA (cerebral vascular accident) Qualifiers: CVA mechanism: unspecified Qualified Code(s): I63.9 - Cerebral infarction, unspecified (2) HTN (hypertension) Qualifiers: Hypertension type: unspecified Qualified Code(s): I10 - Essential (primary) hypertension (5) DM (diabetes mellitus) Qualifiers: Diabetes mellitus type: type 2 Diabetes mellitus manager long term care insulin use: without jail use Diabetes mellitus complication status: with unspecified complications Qualified Code(s): E11.8 - Type 2 diabetes mellitus with unspecified complications
== END 2017-12-30 19:20 | disposition home or self-care (01) ==
LOC: NEPE 20:02 → NEDA 22:08 → N06 23:42
PROVIDERS: ADMIT Hospitalist; ATTEND Hospitalist